=== PATIENT | female | born 1945 | race Caucasian/White ===

== ENCOUNTER → 2020-03-29 11:55 | Outpatient (CLI) | payer MEDICARE, OTHER, SELFPAY ==
--- NOTE | 2020-03-29 | DI.RAD.S_ITS ---
PROCEDURE: XR THORACIC SPINE 3V INDICATIONS: CHRONIC BACK PAIN TECHNIQUE: 3 views of the thoracic spine were acquired. COMPARISON: None. FINDINGS: Bones: No fractures or dislocations but there is mild to moderate degenerative disc disease best seen over the lower half of the thoracic spine. No prior compression fracture found.. No suspicious bony lesions. Twelve pairs of ribs are noted, and appear intact where visualized. Soft tissues: No paravertebral stripe thickening. IMPRESSION: Dily-ah-hrsecmoi degenerative disc disease along the lower half of the LS spine, without evidence of prior trauma or subluxation. No definite spinal or foraminal stenosis is found. Dictated by: Joby William M.D. on 03/29/2020 at 13:55 Approved by: Joby William M.D. on 03/29/2020 at 13:56
--- NOTE | 2020-03-29 | DI.RAD.S_ITS ---
PROCEDURE: XR LUMBAR SPINE MIN 4V INDICATIONS: CHRONIC BACK PAIN TECHNIQUE: For views of the lumbar spine were acquired. COMPARISON: None. FINDINGS: Bones: 5 nonrib-bearing vertebrae are present. There is mildly abnormal bony alignment with slight convex rightward scoliosis centered at the thoracolumbar junction and also grade 1 anterolisthesis of L4 on L5 seen on the lateral view. The degenerative disc disease present is moderate in severity over the middle and lower thirds of the lumbosacral spine and moderately severe facet osteoarthritis is present from L3 through S1 with ligamentous laxity allowing anterolisthesis at L4-L5.. No vertebral body compression fractures. No suspicious bony lesions. Soft tissues: Overlying bowel gas pattern is normal. No suspicious soft tissue calcifications. Oblique images: No pars defects. IMPRESSION: No acute trauma, moderately severe degenerative disc disease and facet osteoarthritis is present over the middle and lower thirds of the LS spine. Spinal and foraminal stenosis likely is present from L3 inferiorly and most pronounced at L5-S1. Ligamentous laxity allows grade 1 anterolisthesis of L4 on L5. Dictated by: Joby William M.D. on 03/29/2020 at 15:10 Approved by: Joby William M.D. on 03/29/2020 at 15:15
== END ==
PROVIDERS: PCP Family Medicine; Referring Provider Family Medicine; Visit Provider Family Medicine
DX: M54.9 Dorsalgia, unspecified (principal); M51.37 Other intervertebral disc degeneration, lumbosacral region; M48.07 Spinal stenosis, lumbosacral region; M43.16 Spondylolisthesis, lumbar region; G89.29 Other chronic pain
CPT/HCPCS: 72072; 72110

== ENCOUNTER → 2020-07-18 11:07 | Outpatient (CLI) | payer MEDICARE, OTHER, SELFPAY | PROVIDERS: PCP Family Medicine; Referring Provider Family Medicine; Visit Provider Family Medicine | DX: M54.16 Radiculopathy, lumbar region (principal); Z53.20 Procedure and treatment not carried out because of patient's decision for unspecified reasons ==

== ENCOUNTER 2022-01-31 21:30 | Inpatient (IN) | payer MEDICARE, OTHER, SELFPAY ==
--- NOTE | 2022-01-31 21:22 | ED.GENADULT ---
HPI - General Adult General Chief complaint: Nausea/Vomiting/Diarrhea Stated complaint: Covid, Nausea, weak, shaky Time Seen by Provider: 01/31/22 21:37 History of Present Illness HPI narrative: 76-year-old woman with a history of hypertension who is immunized against COVID yet tested positive on January 26 with the slight cough appreciated starting January 25. She has not felt particularly sick however over the last 48 hours she has had increasing nausea and vomiting to the point that she is having dry heaves and is so weak that she is having difficulty moving about. She does have a mild headache she is significantly thirsty, she states that she is not significantly short of breath, cough has essentially resolved she is not having diarrhea aside from the pain in her abdomen from retching she isn't having overt abdominal pain. No palpitations and no lower extremity edema Related Data Home Medications Medication Instructions Recorded Confirmed amlodipine 2.5 mg tablet 2.5 mg PO BEDTIME 02/01/22 02/01/22 indapamide 1.25 mg tablet 1.25 mg PO QAM 02/01/22 02/01/22 lisinopril 20 mg tablet 20 tab PO QAM 02/01/22 02/01/22 multivitamin with minerals-folic 1 tab PO QAM 02/01/22 02/01/22 acid 200 mcg chewable tablet netarsudil 0.02 %-latanoprost 1 drp EYE-BOTH BEDTIME 02/01/22 02/01/22 0.005 % eye drops ([place]) Allergies Allergy/AdvReac Type Severity Reaction Status Date / Time hydromorphone [From Dilaudid] Allergy Verified 01/31/22 21:52 iodine Allergy Verified 01/31/22 21:52 Latex, Natural Rubber Allergy Verified 01/31/22 21:52 Sulfa (Sulfonamide Allergy Verified 01/31/22 21:52 Antibiotics) Review of Systems Review of Systems Narrative: Remainder of complete review of systems is otherwise unremarkable except for that included in the HPI. Patient History Medical History Glaucoma Hypertension Surgical History H/O: hysterectomy Previous back surgery Family History (Updated 02/01/22 @ 14:47 by Crow Coleman DO) Mother Hypertension Father Hypertension Social History household members: spouse Smoking Status: Never smoker alcohol intake: never Exam Initial Vital Signs Initial Vital Signs: Vital Signs Temperature 97.8 F 01/31/22 21:46 Pulse Rate 63 01/31/22 21:46 Respiratory Rate 22 01/31/22 21:46 Blood Pressure 169/78 H 01/31/22 21:46 Pulse Oximetry 98 01/31/22 21:46 Oxygen Delivery Method 01/31/22 21:46 General: Frail-appearing, weak but Able to give a complete and coherent history. HEENT: dry mucous membranes, normal sclera with reactive pupils, Neck: No JVD, supple Respiratory: Lungs are clear to auscultation, no wheezing no rales no rhonchi. Full and symmetrical air movement Cardiac: Regular rate and rhythm no murmurs no bruits Abdomen: Soft, nontender, good bowel tones, no flank pain Skin: Warm and dry, no rashes Neurologic: Globally weak but Grossly neurologically intact with no obvious asymmetries or abnormalities Extremities: No trauma, well perfused Psych: Cooperative, appropriate insight and affect Course Orders Ordered: ED Orders 02/01/22 20:15 Sodium Urine Random Urgent 02/02/22 05:00 Complete Blood Count AUTO DIFF DAILY Comprehensive Metabolic Panel DAILY Magnesium DAILY 02/03/22 05:00 Complete Blood Count AUTO DIFF DAILY Comprehensive Metabolic Panel DAILY Magnesium DAILY 02/04/22 05:00 Complete Blood Count AUTO DIFF DAILY Comprehensive Metabolic Panel DAILY Magnesium DAILY Enoxaparin Sodium (Enoxaparin 40 Mg/0.4 Ml Syringe) 40 mg SUBCUT DAILY [facility] Last Admin: 02/01/22 15:21 Dose: 40 mg Documented By: CLL Ondansetron HCl (Ondansetron 4 Mg/2 Ml Inj) 4 mg IV Q8HR PRN PRN Reason: Nausea And Vomiting Discontinued Medications Magnesium Sulfate (Magnesium Sulfate) 2 gm in 50 mls @ 150 mls/hr IV NOW ONE Stop: 02/01/22 01:57 Last Infusion: 02/01/22 02:27 Dose: 0 mls/hr Documented By: MIKEY Co-signed By: ANTHONY Admin: 02/01/22 01:54 Dose: 150 mls/hr Documented By: MIKEY Co-signed By: ANTHONY Sodium Chloride (Normal Saline 0.9%) 1,000 mls @ 60 mls/hr IV CONT ARI Last Infusion: 02/01/22 11:00 Dose: 0 mls/hr Documented By: Admin: 02/01/22 02:07 Dose: 60 mls/hr Documented By: MIKEY POTASSIUM CHLORIDE IN WATER (Potassium Cl 10 Meq/100 Ml [place]) 10 meq in 100 mls @ 100 mls/hr IV Q1H ARI Stop: 02/01/22 07:44 Last Admin: 02/01/22 11:43 Dose: Not Given Documented By: Infusion: 02/01/22 11:43 Dose: 0 mls/hr Documented By: Infusion: 02/01/22 11:29 Dose: 0 mls/hr Documented By: Admin: 02/01/22 10:38 Dose: 100 mls/hr Documented By: Infusion: 02/01/22 09:28 Dose: 0 mls/hr Documented By: Admin: 02/01/22 07:00 Dose: 60 mls/hr Documented By: Infusion: 02/01/22 06:34 Dose: 60 mls/hr Documented By: Admin: 02/01/22 04:53 Dose: 60 mls/hr Documented By: Infusion: 02/01/22 04:48 Dose: 60 mls/hr Documented By: Admin: 02/01/22 03:07 Dose: 60 mls/hr Documented By: Infusion: 02/01/22 02:56 Dose: 100 mls/hr Documented By: Admin: 02/01/22 01:56 Dose: 100 mls/hr Documented By: MIKEY Sodium Chloride (Normal Saline 0.9%) 500 mls @ 500 mls/hr IV BOLUS ONE Stop: 02/01/22 04:09 Last Infusion: 02/01/22 05:19 Dose: 0 mls/hr Documented By: Admin: 02/01/22 03:15 Dose: 500 mls/hr Documented By: MIKEY Metoclopramide HCl (Metoclopramide 10 Mg/2 Ml Inj) 10 mg IV NOW ONE Stop: 02/01/22 01:45 Last Admin: 02/01/22 01:56 Dose: 10 mg Documented By: MIKEY Vital Signs Vital signs: Vital Signs - 8 hr 02/01/22 01:32 02/01/22 01:33 02/01/22 01:33 Pulse Rate 77 Blood Pressure 189/86 H Pulse Oximetry 91 99 02/01/22 02:00 02/01/22 02:01 02/01/22 02:01 Pulse Rate 73 76 Blood Pressure 116/71 Pulse Oximetry 98 99 02/01/22 02:30 02/01/22 02:30 Pulse Rate 71 Blood Pressure 148/70 H Pulse Oximetry 96 Medical Decision Making Lab Data Result diagrams: 02/01/22 04:27 02/01/22 20:15 Labs: Lab Results 01/31/22 01/31/22 01/31/22 Range/Units 21:35 21:35 21:35 WBC 1.6 L* (4.5-11.0) X10^3/uL RBC 4.19 (4.0-5.2) X10^6/uL Hgb 13.1 (12.0-16.0) g/dL Hct 37.8 (36-46) % MCV 90.3 (80-100) fL MCH 31.2 (26-34) PG MCHC 34.5 (30-36) % RDW 14.1 (11.6-14.8) % Plt Count 184 (150-400) X10^3/uL Neut % (Auto) Not Reportable Lymph % (Auto) Not Reportable [place] % (Auto) Not Reportable Eos % (Auto) Not Reportable Baso % (Auto) Not Reportable Lymph # (Auto) Not Reportable [place] # (Auto) Not Reportable Baso # (Auto) Not Reportable Total Counted 100 Seg Neutrophils % 34.0 L (38-70) % Band Neutrophils % (3-7) % Lymphocytes % (Manual) 45.0 (25-45) % Atypical Lymphs % 1.0 H ( - 0) % Monocytes % (Manual) 20.0 H (2-11) % Basophils % (Manual) (0-1) % Neutrophils # (Manual) 544 L (6546-7619) /uL RBC Morphology Norm Sodium (137-145) mmol/L Potassium (3.4-5.1) mmol/L Chloride (98-107) mmol/L Carbon Dioxide (22-32) mmol/L BUN (7-17) mg/dL Creatinine (0.52-1.04) mg/dL Estimated GFR (>60) mL/min BUN/Creatinine Ratio (6-22) Glucose (80-110) mg/dL Calcium (8.4-10.2) mg/dL Magnesium (1.6-2.3) mg/dL Total Bilirubin (0.2-1.3) mg/dL AST (14-36) IU/L ALT (<35) IU/L Alkaline Phosphatase (38-126) U/L Troponin I < 0.012 (0.01-0.034) ng/mL NT-Pro-B Natriuret Pep 115 (<450) pg/mL Total Protein (6.3-8.2) g/dL Albumin (3.5-5.0) g/dL Globulin (1.7-4.1) g/dL Albumin/Globulin Ratio (1.0-2.8) SARS-CoV-2 (PCR) (Negative) 01/31/22 01/31/22 02/01/22 Range/Units 21:35 22:02 04:27 WBC 2.0 L (4.5-11.0) X10^3/uL RBC 4.31 (4.0-5.2) X10^6/uL Hgb 13.4 (12.0-16.0) g/dL Hct 39.1 (36-46) % MCV 90.9 (80-100) fL MCH 31.2 (26-34) PG MCHC 34.4 (30-36) % RDW 13.8 (11.6-14.8) % Plt Count 229 (150-400) X10^3/uL Neut % (Auto) Not Reportable Lymph % (Auto) Not Reportable [place] % (Auto) Not Reportable Eos % (Auto) Not Reportable Baso % (Auto) Not Reportable Lymph # (Auto) Not Reportable [place] # (Auto) Not Reportable Baso # (Auto) Not Reportable Total Counted 100 Seg Neutrophils % 41.0 (38-70) % Band Neutrophils % 5.0 (3-7) % Lymphocytes % (Manual) 31.0 (25-45) % Atypical Lymphs % ( - 0) % Monocytes % (Manual) 22.0 H (2-11) % Basophils % (Manual) 1.0 (0-1) % Neutrophils # (Manual) 920 L (7680-6362) /uL RBC Morphology Normal morphology Sodium 116 L* (137-145) mmol/L Potassium 2.6 L* (3.4-5.1) mmol/L Chloride 80 L (98-107) mmol/L Carbon Dioxide 28 (22-32) mmol/L BUN 10 (7-17) mg/dL Creatinine 0.43 L (0.52-1.04) mg/dL Estimated GFR > 60 (>60) mL/min BUN/Creatinine Ratio 23.3 H (6-22) Glucose 133 H (80-110) mg/dL Calcium 8.0 L (8.4-10.2) mg/dL Magnesium 1.5 L (1.6-2.3) mg/dL Total Bilirubin 0.4 (0.2-1.3) mg/dL AST 40 H (14-36) IU/L ALT 22 (<35) IU/L Alkaline Phosphatase 43 (38-126) U/L Troponin I (0.01-0.034) ng/mL NT-Pro-B Natriuret Pep (<450) pg/mL Total Protein 7.0 (6.3-8.2) g/dL Albumin 4.0 (3.5-5.0) g/dL Globulin 3.0 (1.7-4.1) g/dL Albumin/Globulin Ratio 1.3 (1.0-2.8) SARS-CoV-2 (PCR) Positive H (Negative) 02/01/22 02/01/22 Range/Units 06:03 06:03 WBC (4.5-11.0) X10^3/uL RBC (4.0-5.2) X10^6/uL Hgb (12.0-16.0) g/dL Hct (36-46) % MCV (80-100) fL MCH (26-34) PG MCHC (30-36) % RDW (11.6-14.8) % Plt Count (150-400) X10^3/uL Neut % (Auto) Lymph % (Auto) [place] % (Auto) Eos % (Auto) Baso % (Auto) Lymph # (Auto) [place] # (Auto) Baso # (Auto) Total Counted Seg Neutrophils % (38-70) % Band Neutrophils % (3-7) % Lymphocytes % (Manual) (25-45) % Atypical Lymphs % ( - 0) % Monocytes % (Manual) (2-11) % Basophils % (Manual) (0-1) % Neutrophils # (Manual) (0737-1196) /uL RBC Morphology Sodium 120 L (137-145) mmol/L Potassium 3.4 (3.4-5.1) mmol/L Chloride 86 L (98-107) mmol/L Carbon Dioxide 29 (22-32) mmol/L BUN 8 (7-17) mg/dL Creatinine 0.52 (0.52-1.04) mg/dL Estimated GFR > 60 (>60) mL/min BUN/Creatinine Ratio 15.4 (6-22) Glucose 105 (80-110) mg/dL Calcium 8.1 L (8.4-10.2) mg/dL Magnesium 2.1 (1.6-2.3) mg/dL Total Bilirubin 0.3 (0.2-1.3) mg/dL AST 42 H (14-36) IU/L ALT 22 (<35) IU/L Alkaline Phosphatase 44 (38-126) U/L Troponin I (0.01-0.034) ng/mL NT-Pro-B Natriuret Pep 479 H (<450) pg/mL Total Protein 6.7 (6.3-8.2) g/dL Albumin 4.0 (3.5-5.0) g/dL Globulin 2.7 (1.7-4.1) g/dL Albumin/Globulin Ratio 1.5 (1.0-2.8) SARS-CoV-2 (PCR) (Negative) ECG Data Interpretation: Sinus rhythm at a rate of 66 1st degree block Normal intervals, normal axis No ischemic changes MDM Narrative Medical decision making narrative: 76-year-old woman with history of hypertension for which she takes indapamide, lisinopril 20 mg, and amlodipine 2.5 mg, with concurrent COVID infection in a fully vaccinated patient. Minimal respiratory symptoms and no hypoxia however she has had dramatic vomiting over the last 48 hours to the point that she is hyponatremic, hypomagnesemic, and hypokalemic with significant associated weakness. Will replace all of the above and plan for hospital admission the. I believe stopping the indapamide is also indicated at this time. 6am patient has done well. Her repeat blood work indicates white count is slightly up, she is stopped vomiting, she has received magnesium potassium total of 500 cc of saline and continued 60cc/hr. She has gotten up to void spontaneously a couple of times and her stability seems to be improving slightly. Care is reviewed with Heather Trevino, evening hospitalist. She will hand this case over to the day hospitalist for admission. Awaiting chemistries to see what sodium level as to determine floor care verses ICU requirement with initial admission. Discharge Plan Departure Patient Disposition: Admitted As Inpatient Clinical Impression: COVID, Nausea & vomiting, Acute hyponatremia, Hypokalemia, Hypomagnesemia Admit Date/Time: 02/01/22 07:33 Admit Provider: Crow Coleman
[2022-01-31 21:46] VITALS: BP 169/78; PULSE 63; RESP 22; TEMP 36.6; O2SAT 98; BMI 19.5
[2022-01-31 22:05] LABS: Hematocrit 37.8 % (36-46); Hemoglobin 13.1 g/dL (12.0-16.0); Mean Corpuscular HGB Conc 34.5 % (30-36); Mean Corpuscular Hemoglobin 31.2 PG (26-34); Mean Corpuscular Volume 90.3 fL (80-100); Platelet Count 184 X10^3/uL (150-400); Red Blood Cell Count 4.19 X10^6/uL (4.0-5.2); Red Cell Distribution Width 14.1 % (11.6-14.8)
[2022-01-31 22:10] LABS: White Blood Cell Count 1.6 X10^3/uL (4.5-11.0)
[2022-01-31 22:11] LABS: Add Manual Diff / Slide Review YES
[2022-01-31 22:12] LABS: Alanine Aminotransferase 22 IU/L (<35); Albumin Globulin Ratio 1.3 (1.0-2.8); Alkaline Phosphatase 43 U/L (38-126); Aspartate Aminotransferase 40 IU/L (14-36); BUN Creatinine Ratio 23.3 (6-22); Bilirubin Total 0.4 mg/dL (0.2-1.3); Blood Urea Nitrogen 10 mg/dL (7-17); Carbon Dioxide 28 mmol/L (22-32); Estimated Glomerular Filt Rate > 60 mL/min (>60); Glucose 133 mg/dL (80-110); HEMOLYSIS < 15 (0-50); Magnesium 1.5 mg/dL (1.6-2.3)
[2022-01-31 22:20] LABS: NT-proBNP (BNP-Adult 18+) 115 pg/mL (<450)
[2022-01-31 22:21] LABS: Neutrophils Absolute Manual 544 /uL (3000-5900); Total Cells Counted 100
[2022-01-31 22:23] LABS: RBC Morphology Norm; Troponin I < 0.012 ng/mL (0.01-0.034)
[2022-01-31 22:27] LABS: Chloride 80 mmol/L (98-107)
[2022-01-31 22:28] LABS: Potassium 2.6 mmol/L (3.4-5.1); Sodium 116 mmol/L (137-145)
[2022-01-31 23:17] LABS: COVID19 - ADMIT (NP swab/PCR) POSITIVE (Negative)
[2022-02-01] VITALS (28 sets, daily range): BP systolic 116–189; BP diastolic 67–86; PULSE 63–77; RESP 14–16; TEMP 36.1–36.7; O2SAT 91–99; BMI 18.3
--- NOTE | 2022-02-01 01:38 | DI.RAD.S_ITS ---
PROCEDURE: XR CHEST 1V INDICATIONS: covid TECHNIQUE: One view of the chest was acquired. COMPARISON: None. FINDINGS: Surgical changes and devices: None. Lungs and pleura: No acute consolidation. There is a small nodular opacity projecting over the right posterolateral 8th rib. No pleural effusions or pneumothorax. Mediastinum: Mediastinal contours appear normal. Heart size is normal. Bones and chest wall: No suspicious bony lesions. Overlying soft tissues appear unremarkable. IMPRESSION: 1. No acute consolidation. 2. Small nodular opacity projecting over the right posterolateral 8th rib. The findings may represent confluence of vascular and bony structures versus a pulmonary nodule. A follow-up PA and lateral study may be performed for further evaluation if clinically indicated. Dictated by: Richard Jiang M.D. on 02/01/2022 at 2:09 Approved by: Richard Jiang M.D. on 02/01/2022 at 2:11
[2022-02-01] MEDS: MAGNESIUM SULFATE 2 GM/50 ML PIGGYBACK IV (01:54)
[2022-02-01] MEDS: METOCLOPRAMIDE 10 MG/2 ML INJ IV (01:56)
[2022-02-01] MEDS: POTASSIUM CHLORIDE IN WATER 10 MEQ/100 ML PIGGYBACK 100 MEQ IV ×2 (01:56→10:38)
[2022-02-01] MEDS: SODIUM CHLORIDE 0.9% 1,000 ML 60 ML IV (02:07)
[2022-02-01] MEDS: POTASSIUM CHLORIDE IN WATER 10 MEQ/100 ML PIGGYBACK 60 MEQ IV ×3 (03:07→07:00)
[2022-02-01] MEDS: SODIUM CHLORIDE 0.9% 500 ML IV (03:15)
[2022-02-01 05:10] LABS: Hematocrit 39.1 % (36-46); Hemoglobin 13.4 g/dL (12.0-16.0); Mean Corpuscular HGB Conc 34.4 % (30-36); Mean Corpuscular Hemoglobin 31.2 PG (26-34); Mean Corpuscular Volume 90.9 fL (80-100); Platelet Count 229 X10^3/uL (150-400); Red Blood Cell Count 4.31 X10^6/uL (4.0-5.2); Red Cell Distribution Width 13.8 % (11.6-14.8)
[2022-02-01 05:15] LABS: Add Manual Diff / Slide Review YES
[2022-02-01 06:25] LABS: Alanine Aminotransferase 22 IU/L (<35); Albumin Globulin Ratio 1.5 (1.0-2.8); Alkaline Phosphatase 44 U/L (38-126); Aspartate Aminotransferase 42 IU/L (14-36); BUN Creatinine Ratio 15.4 (6-22); Bilirubin Total 0.3 mg/dL (0.2-1.3); Blood Urea Nitrogen 8 mg/dL (7-17); Calcium 8.1 mg/dL (8.4-10.2); Carbon Dioxide 29 mmol/L (22-32); Chloride 86 mmol/L (98-107); Estimated Glomerular Filt Rate > 60 mL/min (>60); Globulin 2.7 g/dL (1.7-4.1); Glucose 105 mg/dL (80-110); HEMOLYSIS < 15 (0-50); Magnesium 2.1 mg/dL (1.6-2.3); Potassium 3.4 mmol/L (3.4-5.1); Sodium 120 mmol/L (137-145); Total Protein 6.7 g/dL (6.3-8.2)
[2022-02-01 06:26] LABS: Neutrophils Absolute Manual 920 /uL (3000-5900); RBC Morphology Normal Morphology; Total Cells Counted 100
[2022-02-01 06:34] LABS: NT-proBNP (BNP-Adult 18+) 479 pg/mL (<450)
[2022-02-01 11:01] LABS: BUN Creatinine Ratio 14.8 (6-22); Blood Urea Nitrogen 8 mg/dL (7-17); Calcium 8.2 mg/dL (8.4-10.2); Carbon Dioxide 32 mmol/L (22-32); Chloride 89 mmol/L (98-107); Estimated Glomerular Filt Rate > 60 mL/min (>60); Glucose 116 mg/dL (80-110); HEMOLYSIS 26 (0-50); Potassium 3.5 mmol/L (3.4-5.1); Sodium 124 mmol/L (137-145)
--- NOTE | 2022-02-01 11:43 | PC.NURSE ---
Home medication list updated. Pt c/o extreme pain in arm w/ potassium infusing after normal saline was discontinued. Spoke w/ Dr. Coleman, he ordered to discontinue IV potassium and that he would address oral potassium once pt is upstairs.
--- NOTE | 2022-02-01 14:39 | PC.NURSE ---
Assess- Patient is alert and oriented x4, she denies pain. She is positive for covid but is asymptomatic. She is not on oxygen or coughing. Will go in now and assess patient, she states that she uses scarlet pads for leakage of urine.
--- NOTE | 2022-02-01 14:46 | PM.HP.1 ---
History of Present Illness History of Present Illness Date Patient Seen: 02/01/22 Time Patient Seen: 13:30 Chief complaint: Covid, Nausea, weak, shaky Narrative: This is a 76-year-old female with a past medical history of hypertension who presented to the emergency room with worsening nausea and weakness over the past couple of days. Patient started developing generalized malaise approximately 5 days ago, on the 1st day she tested negative for COVID but the following day she still felt worse and a repeat test was positive at home. Her nausea continued to worsen over the coming days and she has not been able to eat or drink much at home. She has had decreased urine output, but no dysuria, or urinary frequency. She denies any abdominal pain, chest pain, shortness of breath. She does endorse a mild cough but though that has markedly improved. She denies any diarrhea, or vomiting despite her nausea. She further denies any slurred speech, facial droop, numbness, or tingling. In the emergency room, the patient was hypertensive but the remainder of her vital signs were unremarkable. Laboratory evaluation revealed a mild leukopenia with neutropenia, and a marked hyponatremia with initial sodium of 116. She was given IV fluids for presumed dehydration with improvement in her sodium to 120. She was admitted for further management for hypovolemic hyponatremia. Patient History Medical History Glaucoma Hypertension Surgical History H/O: hysterectomy Previous back surgery Family & Social History Family History (Updated 02/01/22 @ 14:47 by Crow Coleman DO) Mother Hypertension Father Hypertension Social History: household members spouse Prior Living Arrangements House Safety & Behavioral: Feels Safe in Current Yes Environment Been Physically Hurt or No Threatened By a Person Tobacco & Substance use: Smoking Status Never smoker alcohol intake 1 glass of wine most days Substance Use Type does not use Meds Home Medications and Allergies Home Medications Medication Instructions Recorded Confirmed Type amlodipine 2.5 mg tablet 2.5 mg PO BEDTIME 02/01/22 02/01/22 History indapamide 1.25 mg tablet 1.25 mg PO QAM 02/01/22 02/01/22 History lisinopril 20 mg tablet 20 tab PO QAM 02/01/22 02/01/22 History multivitamin with minerals-folic 1 tab PO QAM 02/01/22 02/01/22 History acid 200 mcg chewable tablet netarsudil 0.02 %-latanoprost 1 drp EYE-BOTH BEDTIME 02/01/22 02/01/22 History 0.005 % eye drops (Rocklatan) Allergies Allergy/AdvReac Type Severity Reaction Status Date / Time hydromorphone [From Dilaudid] Allergy Verified 01/31/22 21:52 iodine Allergy Verified 01/31/22 21:52 Latex, Natural Rubber Allergy Verified 01/31/22 21:52 Sulfa (Sulfonamide Allergy Verified 01/31/22 21:52 Antibiotics) Review of Systems Review of Systems Narrative: All other systems reviewed with the patient and are negative unless otherwise stated. Exam Vital Signs (past 8 hours): - 02/01/22 07:01 02/01/22 07:35 02/01/22 07:38 Temperature Pulse Rate 73 Respiratory Rate Blood Pressure 160/70 H Pulse Oximetry 92 99 Oxygen Delivery Method Oxygen Flow Rate 02/01/22 07:38 02/01/22 07:46 02/01/22 07:46 Temperature Pulse Rate 74 Respiratory Rate Blood Pressure 162/74 H 145/75 H Pulse Oximetry 97 Oxygen Delivery Method Oxygen Flow Rate 02/01/22 08:12 02/01/22 08:00 02/01/22 08:00 Temperature 98.1 F Pulse Rate 69 Respiratory Rate Blood Pressure 145/77 H Pulse Oximetry 97 Oxygen Delivery Method Oxygen Flow Rate 02/01/22 08:30 02/01/22 08:36 02/01/22 08:36 Temperature Pulse Rate 75 76 Respiratory Rate Blood Pressure 158/77 H Pulse Oximetry 99 99 Oxygen Delivery Method Oxygen Flow Rate 02/01/22 09:00 02/01/22 09:00 02/01/22 11:13 Temperature Pulse Rate 70 Respiratory Rate Blood Pressure 155/76 H 141/71 H Pulse Oximetry 98 Oxygen Delivery Method Oxygen Flow Rate 02/01/22 11:13 02/01/22 11:28 02/01/22 11:28 Temperature Pulse Rate 75 77 Respiratory Rate 16 Blood Pressure 131/68 Pulse Oximetry 98 98 Oxygen Delivery Method Room Air Oxygen Flow Rate 02/01/22 13:00 02/01/22 14:36 Temperature 97 F L Pulse Rate 72 Respiratory Rate 14 Blood Pressure 143/73 H Pulse Oximetry 99 Oxygen Delivery Method Room Air Oxygen Flow Rate 0 Oxygen Delivery Method Room Air Oxygen Flow Rate 0 Narrative Exam Narrative: General:? Patient is well developed and well nourished, in no distress at this time. HEENT:? Normocephalic, atraumatic, extraocular muscles intact, oral pharynx is clear and mucous membranes are moist. Neck: supple and symmetric, trachea is midline, no cervical adenopathy. Negative for JVD Chest:? Normal AP diameter and contour without kyphoscoliosis, no tachypnea, equal chest rise bilaterally. Lungs:? CTA b/l no wheezing rhonchi or rales. Cardio:?RRR no m/r/g. Abdomen: S NT ND. No CVA tenderness. Musculoskeletal:? Muscle strength and tone are equal within normal limits, no deformity. Extremities: No edema or joint effusions. No cyanosis or clubbing. Skin:? Pale,? Warm to touch,dry and intact without rashes, ulcerations or petechiae.? Neuro:? Alert and orientated x3,? sensation to touch intact in all extremities, no gross deficits noted of cranial nerves. Psych:? Patient has a well-kept appearance, appropriate affect, mental status attitude thought context and judgment are appropriate for age. Objective ECG Impression: NSR with 1st degree AV block as interpret Labs Result Diagrams: 02/01/22 04:27 02/01/22 10:35 Labs: Laboratory Results - last 24 hr 01/31/22 01/31/22 01/31/22 21:35 21:35 21:35 WBC 1.6 L* RBC 4.19 Hgb 13.1 Hct 37.8 MCV 90.3 MCH 31.2 MCHC 34.5 RDW 14.1 Plt Count 184 Neut % (Auto) Not Reportable Lymph % (Auto) Not Reportable [place] % (Auto) Not Reportable Eos % (Auto) Not Reportable Baso % (Auto) Not Reportable Lymph # (Auto) Not Reportable [place] # (Auto) Not Reportable Baso # (Auto) Not Reportable Total Counted 100 Seg Neutrophils % 34.0 L Band Neutrophils % Lymphocytes % (Manual) 45.0 Atypical Lymphs % 1.0 H Monocytes % (Manual) 20.0 H Basophils % (Manual) Neutrophils # (Manual) 544 L RBC Morphology Norm Sodium Potassium Chloride Carbon Dioxide BUN Creatinine Estimated GFR BUN/Creatinine Ratio Glucose Calcium Magnesium Total Bilirubin AST ALT Alkaline Phosphatase Troponin I < 0.012 NT-Pro-B Natriuret Pep 115 Total Protein Albumin Globulin Albumin/Globulin Ratio SARS-CoV-2 (PCR) 01/31/22 01/31/22 02/01/22 21:35 22:02 04:27 WBC 2.0 L RBC 4.31 Hgb 13.4 Hct 39.1 MCV 90.9 MCH 31.2 MCHC 34.4 RDW 13.8 Plt Count 229 Neut % (Auto) Not Reportable Lymph % (Auto) Not Reportable [place] % (Auto) Not Reportable Eos % (Auto) Not Reportable Baso % (Auto) Not Reportable Lymph # (Auto) Not Reportable [place] # (Auto) Not Reportable Baso # (Auto) Not Reportable Total Counted 100 Seg Neutrophils % 41.0 Band Neutrophils % 5.0 Lymphocytes % (Manual) 31.0 Atypical Lymphs % Monocytes % (Manual) 22.0 H Basophils % (Manual) 1.0 Neutrophils # (Manual) 920 L RBC Morphology Normal morphology Sodium 116 L* Potassium 2.6 L* Chloride 80 L Carbon Dioxide 28 BUN 10 Creatinine 0.43 L Estimated GFR > 60 BUN/Creatinine Ratio 23.3 H Glucose 133 H Calcium 8.0 L Magnesium 1.5 L Total Bilirubin 0.4 AST 40 H ALT 22 Alkaline Phosphatase 43 Troponin I NT-Pro-B Natriuret Pep Total Protein 7.0 Albumin 4.0 Globulin 3.0 Albumin/Globulin Ratio 1.3 SARS-CoV-2 (PCR) Positive H 02/01/22 02/01/22 02/01/22 06:03 06:03 10:35 WBC RBC Hgb Hct MCV MCH MCHC RDW Plt Count Neut % (Auto) Lymph % (Auto) [place] % (Auto) Eos % (Auto) Baso % (Auto) Lymph # (Auto) [place] # (Auto) Baso # (Auto) Total Counted Seg Neutrophils % Band Neutrophils % Lymphocytes % (Manual) Atypical Lymphs % Monocytes % (Manual) Basophils % (Manual) Neutrophils # (Manual) RBC Morphology Sodium 120 L 124 L Potassium 3.4 3.5 Chloride 86 L 89 L Carbon Dioxide 29 32 BUN 8 8 Creatinine 0.52 0.54 Estimated GFR > 60 > 60 BUN/Creatinine Ratio 15.4 14.8 Glucose 105 116 H Calcium 8.1 L 8.2 L Magnesium 2.1 Total Bilirubin 0.3 AST 42 H ALT 22 Alkaline Phosphatase 44 Troponin I NT-Pro-B Natriuret Pep 479 H Total Protein 6.7 Albumin 4.0 Globulin 2.7 Albumin/Globulin Ratio 1.5 SARS-CoV-2 (PCR) Assessment & Plan Assessment & Plan narrative: 1. Hyponatremia, presumed acute - rapidly corrected from 116 to 124 with IVF. IVF now off, continue to follow, already at goal Na for today. Consider D5W if continuing to rise. - suspect hypovolemic hyponatremia. Urine sodium is pending. - continue to follow q4 BMP. 2. Essential hypertension - continue home lisinopril and amlodipine. 3. COVID-19 infection - outside of window for paxlovid therapy and this is not available currently at [facility]. - Continue symptomatic treatments as needed. Code: Full as discussed with the patient, surrogate decision maker is her spouse DVT: Lovenox daily Dispo: Patient is admitted under inpatient status as her stay is expected to exceed 2 midnights I have utilized all available immediate resources to obtain, update, or review the patient's current medications. Time Spent With Patient Critical Care time: I spent a total of [] minutes of critical care time on this patient's care today; this time is exclusive of procedural time. Quality VTE Deep Vein Thrombosis/Pulmonary Embolism Present on Admission: No MIPS - Admit I confirm the patient?s Advance Care Plan is present, Code status is documented, Surrogate decision maker is in patient?s record [If Yes, STOP here]: Yes
[2022-02-01] MEDS: ENOXAPARIN 40 MG/0.4 ML SYRINGE SUBCUT (15:21)
[2022-02-01 20:55] LABS: BUN Creatinine Ratio 23.4 (6-22); Blood Urea Nitrogen 18 mg/dL (7-17); Calcium 8.2 mg/dL (8.4-10.2); Carbon Dioxide 30 mmol/L (22-32); Chloride 90 mmol/L (98-107); Estimated Glomerular Filt Rate > 60 mL/min (>60); Glucose 112 mg/dL (80-110); HEMOLYSIS < 15 (0-50); Potassium 3.4 mmol/L (3.4-5.1); Sodium 126 mmol/L (137-145)
[2022-02-01 21:30] LABS: Sodium Urine Random 8 mmol/L (30-90)
[2022-02-02 05:00] VITALS: BP 160/71; PULSE 65; RESP 16; TEMP 36.7; O2SAT 100
[2022-02-02 06:00] VITALS: O2SAT 100
[2022-02-02 06:51] LABS: Add Manual Diff / Slide Review NO; Basophils Absolute Auto 0 /uL (0-100); Basophils Percent Auto 0.6 % (0-2); Eosinophils Absolute Auto 0 /uL (0-450); Eosinophils Percent Auto 0.5 % (2-4); Hematocrit 39.4 % (36-46); Hemoglobin 13.6 g/dL (12.0-16.0); Lymphocytes Absolute Auto 1000 /uL (1100-4500); Mean Corpuscular HGB Conc 34.5 % (30-36); Mean Corpuscular Hemoglobin 31.3 PG (26-34); Mean Corpuscular Volume 90.6 fL (80-100); Monocytes Absolute Auto 400 /uL (0-900); Monocytes Percent Auto 20.3 % (3-14); Neutrophils Absolute Auto 800 /uL (1500-7000); Neutrophils Percent Auto 34.6 % (50-75); Platelet Count 193 X10^3/uL (150-400); Red Blood Cell Count 4.35 X10^6/uL (4.0-5.2); Red Cell Distribution Width 14.2 % (11.6-14.8); White Blood Cell Count 2.2 X10^3/uL (4.5-11.0)
[2022-02-02 07:03] LABS: Alanine Aminotransferase 26 IU/L (<35); Albumin 4.2 g/dL (3.5-5.0); Albumin Globulin Ratio 1.4 (1.0-2.8); Alkaline Phosphatase 41 U/L (38-126); Aspartate Aminotransferase 43 IU/L (14-36); BUN Creatinine Ratio 25.9 (6-22); Bilirubin Total 0.5 mg/dL (0.2-1.3); Blood Urea Nitrogen 15 mg/dL (7-17); Calcium 8.2 mg/dL (8.4-10.2); Carbon Dioxide 33 mmol/L (22-32); Chloride 90 mmol/L (98-107); Estimated Glomerular Filt Rate > 60 mL/min (>60); Glucose 97 mg/dL (80-110); HEMOLYSIS < 15 (0-50); Magnesium 2.1 mg/dL (1.6-2.3); Potassium 3.2 mmol/L (3.4-5.1); Sodium 128 mmol/L (137-145); Total Protein 7.2 g/dL (6.3-8.2)
--- NOTE | 2022-02-02 08:46 | PC.NURSE ---
Assess- Patients lung sounds are clear this morning, patient states that once in a while her stomach is queasy, she does not have any sob, coughing or difficulty breathing. Patient is eating breakfast and tolerating this well. She may be discharged home today.
[2022-02-02 09:00] VITALS: BP 135/81; PULSE 83; RESP 14; TEMP 36.3; O2SAT 97
--- NOTE | 2022-02-02 10:14 | PM.DS.1 ---
History of Present Illness History of Present Illness Date Patient Seen: 02/02/22 Chief complaint: Covid, Nausea, weak, shaky Narrative: This is a 76-year-old female with a past medical history of hypertension who presented to the emergency room with worsening nausea and weakness over the past couple of days. Patient started developing generalized malaise approximately 5 days ago, on the 1st day she tested negative for COVID but the following day she still felt worse and a repeat test was positive at home. Her nausea continued to worsen over the coming days and she has not been able to eat or drink much at home. She has had decreased urine output, but no dysuria, or urinary frequency. She denies any abdominal pain, chest pain, shortness of breath. She does endorse a mild cough but though that has markedly improved. She denies any diarrhea, or vomiting despite her nausea. She further denies any slurred speech, facial droop, numbness, or tingling. In the emergency room, the patient was hypertensive but the remainder of her vital signs were unremarkable. Laboratory evaluation revealed a mild leukopenia with neutropenia, and a marked hyponatremia with initial sodium of 116. She was given IV fluids for presumed dehydration with improvement in her sodium to 120. She was admitted for further management for hypovolemic hyponatremia. Discharge Providers Provider Date of admission: 02/01/22 07:33 Discharge Date: 02/02/22 Primary care physician: Jax Cardoso DO Discharge provider: Crow Coleman DO Summary Hospital Course Discharge Diagnosis: 1. Hyponatremia, presumed acute 2. Essential hypertension 3. COVID-19 infection 4. Hypokalemia and hypomagnesemia. Hospital Course: This is the 68-year-old female with a past medical history of hypertension who was admitted for hyponatremia. Her hyponatremia was due to decreased oral intake in the setting of nausea with her COVID-19 infection. In the emergency room, her initial sodium level was 116. She also had marked hypokalemia and hypo magnesemia from decreased oral intake. These were repleted. Her sodium level improved rapidly with IV fluids, and shortly after arrival to the hospital for her sodium was 124. IV fluids were discontinued at that time to prevent over-correction, and no further fluids were required. Her sodium continued to improve on its own. She improved much more quickly than expected. The patient was asymptomatic at the time of discharge, and was able to tolerate adequate oral intake for discharge home. I recommended that she continue aggressive oral intake at home and schedule a follow-up with her PCP for an outpatient recheck of her sodium level in the coming weeks. She was provided return precautions including worsening nausea, inability to tolerate oral intake, or vomiting. Time Spent with Patient Time spent: Greater than 30 minutes Exam Vital Signs (past 8 hours): - 02/02/22 05:00 02/02/22 06:00 02/02/22 09:00 Temperature 98.0 F 97.3 F L Pulse Rate 65 83 Respiratory Rate 16 14 Blood Pressure 160/71 H 135/81 Pulse Oximetry 100 100 97 Oxygen Delivery Method Room Air Oxygen Flow Rate 0 0 0 Oxygen Delivery Method Room Air Oxygen Flow Rate 0 Narrative Exam Narrative: General:? Patient is well developed and well nourished, in no distress at this time. HEENT:? Normocephalic, atraumatic, extraocular muscles intact, oral pharynx is clear and mucous membranes are moist. Neck: supple and symmetric, trachea is midline, no cervical adenopathy. Negative for JVD Chest:? Normal AP diameter and contour without kyphoscoliosis, no tachypnea, equal chest rise bilaterally. Lungs:? CTA b/l no wheezing rhonchi or rales. Cardio:?RRR no m/r/g. Abdomen: S NT ND. No CVA tenderness. Musculoskeletal:? Muscle strength and tone are equal within normal limits, no deformity. Extremities: No edema or joint effusions. No cyanosis or clubbing. Skin:? Pale,? Warm to touch,dry and intact without rashes, ulcerations or petechiae.? Neuro:? Alert and orientated x3,? sensation to touch intact in all extremities, no gross deficits noted of cranial nerves. Psych:? Patient has a well-kept appearance, appropriate affect, mental status attitude thought context and judgment are appropriate for age. Objective Labs Result Diagrams: 02/02/22 06:25 02/02/22 06:25 Labs: Laboratory Results - last 24 hr 02/01/22 02/01/22 02/01/22 10:35 20:15 20:15 WBC RBC Hgb Hct MCV MCH MCHC RDW Plt Count Neut % (Auto) Lymph % (Auto) [place] % (Auto) Eos % (Auto) Baso % (Auto) Neut # (Auto) Lymph # (Auto) [place] # (Auto) Eos # (Auto) Baso # (Auto) Sodium 124 L 126 L Potassium 3.5 3.4 Chloride 89 L 90 L Carbon Dioxide 32 30 BUN 8 18 H Creatinine 0.54 0.77 Estimated GFR > 60 > 60 BUN/Creatinine Ratio 14.8 23.4 H Glucose 116 H 112 H Calcium 8.2 L 8.2 L Magnesium Total Bilirubin AST ALT Alkaline Phosphatase Total Protein Albumin Globulin Albumin/Globulin Ratio Ur Random Sodium 8 L 02/02/22 02/02/22 06:25 06:25 WBC 2.2 L RBC 4.35 Hgb 13.6 Hct 39.4 MCV 90.6 MCH 31.3 MCHC 34.5 RDW 14.2 Plt Count 193 Neut % (Auto) 34.6 L Lymph % (Auto) 44.0 H [place] % (Auto) 20.3 H Eos % (Auto) 0.5 L Baso % (Auto) 0.6 Neut # (Auto) 800 L Lymph # (Auto) 1000 L [place] # (Auto) 400 Eos # (Auto) 0 Baso # (Auto) 0 Sodium 128 L Potassium 3.2 L Chloride 90 L Carbon Dioxide 33 H BUN 15 Creatinine 0.58 Estimated GFR > 60 BUN/Creatinine Ratio 25.9 H Glucose 97 Calcium 8.2 L Magnesium 2.1 Total Bilirubin 0.5 AST 43 H ALT 26 Alkaline Phosphatase 41 Total Protein 7.2 Albumin 4.2 Globulin 3.0 Albumin/Globulin Ratio 1.4 Ur Random Sodium PFSH Medical History Glaucoma Hypertension Surgical History H/O: hysterectomy Previous back surgery Family History (Updated 02/01/22 @ 14:47 by Crow Coleman DO) Mother Hypertension Father Hypertension Social History household members: spouse Smoking Status: Never smoker alcohol intake: never Discharge Plan Discharge Plan Patient Disposition: Home Provider Discharge Comment: You were admitted to the hospital with a low sodium level. This was due to dehydration caused by your COVID infection. Continue ondansetron (zofran) at home for nausea as needed. Try and add electrolyte enhance liquids to your diet, such as Gatorade well you are ill. Try and stay well-hydrated. I would also recommend a somewhat high caloric intake with sweet foods if you can tolerate them while you continue to feel ill. Please try to remain Isolated at home until you feel improved, you can wear high quality masks at home as well to try and reduce transmission (N95 mask). Discharge orders & Medications Prescriptions: New ondansetron 4 mg tablet,disintegrating 4 mg PO Q8H PRN (Reason: nausea and vomiting) 30 Days Qty: 30 0RF Continued lisinopril 20 mg tablet 20 tab PO QAM amlodipine 2.5 mg tablet 2.5 mg PO BEDTIME indapamide 1.25 mg tablet 1.25 mg PO QAM Rocklat[place] 0.02-0.005 % drops 1 drp EYE-BOTH BEDTIME multivit with min-folic acid 200 mcg Tablet,Chewable 1 tab PO QAM Follow up/Referrals: Jax Cardoso DO [Primary Care Provider] - Diet/Activity/Treatments Diet: Diet as Tolerated Activity: As tolerated Visit Report/Discharge Packet Instructions: DI for Nausea -- Adult, COVID-19: Protecting Yourself When You're at High Risk Discharge Data Primary Care Provider: Jax Cardoso VTE Deep Vein Thrombosis/Pulmonary Embolism Present on Admission: No
--- NOTE | 2022-02-02 10:37 | CM.DANOTE ---
DCP Assessment: Payor: Medicare PCP: MD Janae Pt is a 76 y.o. F who presented to the ED with COVID related symptoms. Pt was hypertensive but other VS were stable. Labs were taken and showed mild leuokpenia and neutropenia with her sodium level of 116. Pt improved after IV fluids were given and sodium level increased to 120. Pt was admitted for further management of hypovolemia and hyponatremia. DCP did not meet with pt due to the fact she is COVID +. Unable to reach pt . Per MD, pt is medically stable for discharge today. Per RN, pt lung sounds are clear this AM and she is eating breakfast and tolerating. Pt discharging home today via personal POV. sending pt home with Jamila. No needs identified at this time. P: Pt to discharge home via personal POV. Kimmy Daily RN/TANNER Discharge Planning/Care Management CM Discharge Assessment Start: 02/02/22 10:36 Freq: Status: Active Protocol: Document 02/02/22 10:36 AMILCAR (Rec: 02/02/22 10:37 [email or web address] [id number]) Discharge Planning Assessment Assigned Truck Driver Kimmy Daily RN/TANNER Advance Directives? No History Provided By Medical Record Prior Living Arrangements House Household Members spouse Discharge Plan Home Referrals Initiated None needed Whiteboard Updated in Patient Room with No name and ext. # of Truck Driver Comment Unable to enter room due to covid precautions. Review Status In Process Please Provide Date Initial DC 02/02/22 Assessment Was Performed Next Review Type Continued Stay Review
[2022-02-02] MEDS: ENOXAPARIN 40 MG/0.4 ML SYRINGE SUBCUT (11:06)
[2022-02-02] MEDS: POTASSIUM CHLORIDE 20 MEQ TAB 40 MEQ PO (11:06)
== END 2022-02-02 13:28 | disposition home or self-care (01) | DRG 640 ==
LOC: ED 02-01 01:43 → AC 02-01 07:34
PROVIDERS: Admitting Provider Internal Medicine; Emergency Provider Emergency Medicine; PCP Family Medicine; Referring Provider Emergency Medicine; Visit Provider Internal Medicine
DX: E87.1 Hypo-osmolality and hyponatremia (principal); U07.1 COVID-19; R11.2 Nausea with vomiting, unspecified; E87.6 Hypokalemia; E83.42 Hypomagnesemia; I10 Essential (primary) hypertension; E86.0 Dehydration; H40.9 Unspecified glaucoma
CPT/HCPCS: 36415; 71045; 80048; 80053; 83735; 83880; 84300; 84484; 85007; 85025; 87635; 93005; 93010; 96361; 96365; 96366; 96367; 96368; 99284; C9803; J1650; J2765; J3475

== ENCOUNTER 2023-05-23 10:14 | Emergency (ER) | payer MEDICARE, OTHER, SELFPAY ==
[2022-02-01 12:20] VITALS: BMI 18.3
[2023-05-23] VITALS (27 sets, daily range): BP systolic 135–176; BP diastolic 70–94; PULSE 62–75; RESP 13–38; TEMP 36.4; O2SAT 94–100; BMI 20.3
--- NOTE | 2023-05-23 10:16 | DI.RAD.S_ITS ---
PROCEDURE: XR CHEST 1V INDICATIONS: chest pain TECHNIQUE: One view of the chest was acquired. COMPARISON: [facility], CR, XR CHEST 1V, 02/01/2022, 1:46. FINDINGS: Surgical changes and devices: None. Lungs and pleura: Right middle lung zone nodularity. Calcified granuloma in the left lower lobe. No focal airspace opacity. No pneumothorax. Mediastinum: Mediastinal contours appear normal. Heart size is normal. Bones and chest wall: No suspicious bony lesions. Overlying soft tissues appear unremarkable. IMPRESSION: Right middle lung zone nodularity. Recommend nonurgent CT for confirmation. Otherwise, no acute abnormality. Dictated by: Edwin Lawrence M.D. on 05/23/2023 at 10:40 Approved by: Edwin Lawrence M.D. on 05/23/2023 at 10:44
[2023-05-23] MEDS: SODIUM CHLORIDE 0.9% 1,000 ML 150 ML IV (10:50)
--- NOTE | 2023-05-23 11:08 | ED_ITS ---
HPI - General Adult General Chief complaint: Syncope Stated complaint: sent by [facility] for Abnormal EKG Time Seen by Provider: 05/23/23 10:15 Source: patient Mode of arrival: Ambulatory History of Present Illness HPI narrative: 77-year-old female with history of hypertension presents at the request of her primary care provider for a near syncopal episode this morning. She states that she walks 4 miles every day and normally has no trouble but today was 3 miles and when she started feeling increasing short of breath and fatigue as well as lightheadedness and felt like she would pass out were she to continue. She denies any chest pressure, heaviness or squeezing and denies any recent exercise intolerance. She does state that she had a relatively similar episode about a month ago but thought little of it. She stopped her walk and was given a ride home at which time she was able to get an emergency appointment with her primary care provider who obtained an EKG and noted some subtle changes including Q- waves in the inferior leads and she was sent here for evaluation. She does not remember when her last stress test was and denies any prior cardiac history. She denies recent travel, trauma or injury. No history of blood clots or known cancer, no pain, swelling or redness of lower extremities Related Data Home Medications Medication Instructions Recorded Confirmed amlodipine 2.5 mg tablet 2.5 mg PO BEDTIME 02/01/22 02/01/22 indapamide 1.25 mg tablet 1.25 mg PO QAM 02/01/22 02/01/22 lisinopril 20 mg tablet 20 tab PO QAM 02/01/22 02/01/22 multivitamin with minerals-folic 1 tab PO QAM 02/01/22 02/01/22 acid 200 mcg chewable tablet netarsudil 0.02 %-latanoprost 1 drp EYE-BOTH BEDTIME 02/01/22 02/01/22 0.005 % eye drops (Rocklatan) Allergies Allergy/AdvReac Type Severity Reaction Status Date / Time hydromorphone [From Dilaudid] Allergy Verified 05/23/23 10:40 iodine Allergy Verified 05/23/23 10:40 Latex, Natural Rubber Allergy Verified 05/23/23 10:40 Sulfa (Sulfonamide Allergy Verified 05/23/23 10:40 Antibiotics) Review of Systems Review of Systems Narrative: GENERAL: See HPI HEENT: Denies sinus pain, ear pain, sore throat, difficulty swallowing, dizziness. RESPIRATORY: Denies dyspnea, cough, wheezing, hemoptysis, sputum. CARDIOVASCULAR: See HPI GASTROINTESTINAL: Denies nausea, vomiting, abdominal pain, diarrhea, constipation, melena. : Denies dysuria, frequency, incontinence, hematuria, urinary retention. MUSCULOSKELETAL: denies weakness, joint pain, or bony pain SKIN: Denies rash, skin lesions, or other NEUROLOGIC: Denies weakness, headache, numbness, change in speech, confusion, seizures, incoordination. PSYCHIATRIC: No concerning psychosocial issues. 12 point review of systems is negative except for those stated above Patient History Medical History Glaucoma Hypertension Surgical History Previous back surgery H/O: hysterectomy Family History Mother Hypertension Father Hypertension Social History household members: spouse Smoking Status: Never smoker alcohol intake: never Smoking Status: Never smoker Substance Use Type: does not use Exam Narrative Exam Narrative: GENERAL: [77] year old patient appears stated age. Well-developed patient, in mild distress. HEAD: Atraumatic. Normocephalic. EYES: Pupils equal round and reactive. Extraocular motions intact. No scleral icterus. No injection or drainage. ENT: Nose without bleeding, purulent drainage. Throat without erythema, tonsillar hypertrophy or exudate. Airway patent. NECK: Trachea midline. Non tender CARDIOVASCULAR: Regular rate and rhythm without murmurs, gallops, or rubs. RESPIRATORY: Clear to auscultation. Breath sounds equal bilaterally. No wheezes, rales, or rhonchi. GASTROINTESTINAL: Abdomen soft, non-tender, nondistended. EXTREMITIES: No edema or joint tenderness. BACK: Nontender without deformity or crepitance. No flank tenderness. NEURO: AOx3. SKIN: No rash or erythema of visible areas Initial Vital Signs Initial Vital Signs: Vital Signs Temperature 97.6 F 05/23/23 10:34 Pulse Rate 68 05/23/23 10:34 Respiratory Rate 18 05/23/23 10:34 Blood Pressure 153/82 H 05/23/23 10:34 Pulse Oximetry 99 05/23/23 10:34 Oxygen Delivery Method Room Air 05/23/23 10:34 Scores HEART Score Heart Score history: Moderately Suspicious Heart Score EKG: Non-Specific repolarization disturbance Heart Score Age: > or = 65 years old Heart Score risk factors: 1-2 risk factors Heart Score troponin: < or = to normal limit Heart Score Total: 5 Course Orders Ordered: ED Orders 05/23/23 10:16 XR chest 1V Stat 05/23/23 10:53 EKG-12 Lead Stat 05/23/23 11:00 Complete Blood Count AUTO DIFF Stat Comprehensive Metabolic Panel Stat D Dimer Stat Lipase Stat NT-proBNP (BNP-Adult 18+) Stat Troponin & CK Cardiac Panel Stat 05/23/23 11:14 CRP [C-Reactive Protein Quant] Stat ESR [Erythrocyte Sedimentation Rate] Stat 05/23/23 12:43 EKG-12 Lead Stat 05/23/23 14:05 BMP [Basic Metabolic Panel] Stat Troponin & CK Cardiac Panel Stat Sodium Chloride (Normal Saline 0.9%) 1,000 mls @ 150 mls/hr IV CONT ARI Last Infusion: 05/23/23 13:40 Dose: Infused Documented By: Infusion: 05/23/23 12:24 Dose: 900 mls/hr Documented By: Admin: 05/23/23 10:50 Dose: 150 mls/hr Documented By: AMV Reevaluation(s) Reevaluation #1: Patient resting comfortably, complains only of feeling fatigued Consultations Consultation #1: Discussed with on-call Cardiology, Dr. Manzo. We have reviewed the patient's history and physical exam, EKGs and labs. EKGs are unchanged from prior. Troponin negative x2. Patient is quite active and walks 4 miles per day and tolerated it even as recently as yesterday. All of the pain discussed the patient could appropriately be discharged with outpatient follow-up or admitted after discussion and shared decision-making. Vital Signs Vital signs: Vital Signs - 8 hr 05/23/23 10:34 05/23/23 10:45 05/23/23 10:47 Temperature 97.6 F Pulse Rate 68 64 Respiratory Rate 18 25 H Blood Pressure 153/82 H 176/79 H Pulse Oximetry 99 Oxygen Delivery Method Room Air 05/23/23 10:47 10/27/23 11:00 05/23/23 11:02 Temperature Pulse Rate 64 65 64 Respiratory Rate 20 Blood Pressure Pulse Oximetry 100 99 99 Oxygen Delivery Method 05/23/23 11:02 05/23/23 11:30 05/23/23 11:30 Temperature Pulse Rate 62 Respiratory Rate 18 Blood Pressure 157/71 H 145/78 H Pulse Oximetry 99 Oxygen Delivery Method 05/23/23 11:45 05/23/23 11:45 05/23/23 12:00 Temperature Pulse Rate 64 Respiratory Rate 22 Blood Pressure 147/73 H 168/91 H Pulse Oximetry 99 Oxygen Delivery Method Room Air 05/23/23 12:00 05/23/23 12:16 05/23/23 12:16 Temperature Pulse Rate 68 68 Respiratory Rate Blood Pressure 173/81 H Pulse Oximetry 99 98 Oxygen Delivery Method Room Air 05/23/23 12:30 05/23/23 12:30 05/23/23 12:45 Temperature Pulse Rate 67 66 Respiratory Rate 20 Blood Pressure 144/70 H Pulse Oximetry 97 99 Oxygen Delivery Method Room Air Room Air 05/23/23 12:45 05/23/23 13:00 05/23/23 13:00 Temperature Pulse Rate 63 Respiratory Rate 24 Blood Pressure 141/78 H 142/74 H Pulse Oximetry 99 Oxygen Delivery Method 05/23/23 13:23 05/23/23 13:23 05/23/23 13:30 Temperature Pulse Rate 64 63 Respiratory Rate 13 16 Blood Pressure 163/80 H Pulse Oximetry 94 Oxygen Delivery Method Room Air 05/23/23 13:30 05/23/23 13:45 05/23/23 13:45 Temperature Pulse Rate 62 Respiratory Rate 22 Blood Pressure 148/72 H 146/73 H Pulse Oximetry 100 Oxygen Delivery Method Room Air 05/23/23 14:00 05/23/23 14:00 05/23/23 14:15 Temperature Pulse Rate 66 Respiratory Rate 16 Blood Pressure 157/77 H 161/82 H Pulse Oximetry 99 Oxygen Delivery Method Room Air 05/23/23 14:15 05/23/23 14:30 05/23/23 14:30 Temperature Pulse Rate 73 68 Respiratory Rate Blood Pressure 150/81 H Pulse Oximetry 99 96 Oxygen Delivery Method Room Air 05/23/23 14:45 05/23/23 14:45 05/23/23 15:00 Temperature Pulse Rate 68 71 Respiratory Rate 20 38 H Blood Pressure 139/86 Pulse Oximetry 98 98 Oxygen Delivery Method Room Air 05/23/23 15:01 05/23/23 15:01 05/23/23 15:15 Temperature Pulse Rate 74 67 Respiratory Rate 34 H Blood Pressure 169/94 H Pulse Oximetry 98 98 Oxygen Delivery Method Room Air 05/23/23 15:15 05/23/23 15:30 05/23/23 15:48 Temperature Pulse Rate 70 72 Respiratory Rate Blood Pressure 150/82 H Pulse Oximetry 96 96 Oxygen Delivery Method Room Air 05/23/23 15:48 05/23/23 16:00 05/23/23 16:00 Temperature Pulse Rate 71 Respiratory Rate 29 H Blood Pressure 135/76 145/86 H Pulse Oximetry 97 Oxygen Delivery Method 05/23/23 16:15 05/23/23 16:15 05/23/23 16:30 Temperature Pulse Rate 75 Respiratory Rate 24 Blood Pressure 154/87 H 166/89 H Pulse Oximetry 95 Oxygen Delivery Method 05/23/23 16:30 Temperature Pulse Rate 75 Respiratory Rate 30 H Blood Pressure Pulse Oximetry 96 Oxygen Delivery Method Medical Decision Making Lab Data 05/23/23 11:00 05/23/23 14:05 Labs: Lab Results 05/23/23 05/23/23 05/23/23 Range/Units 11:00 11:14 14:05 WBC 5.9 (4.5-11.0) X10^3/uL RBC 3.83 L (4.0-5.2) X10^6/uL Hgb 12.5 (12.0-16.0) g/dL Hct 35.7 L (36-46) % MCV 93.1 (80-100) fL MCH 32.5 (26-34) PG MCHC 35.0 (30-36) % RDW 13.9 (11.6-14.8) % Plt Count 324 (150-400) X10^3/uL Neut % (Auto) 79.8 H (50-75) % Lymph % (Auto) 11.7 L (25-40) % Taliaferro % (Auto) 7.9 (3-14) % Eos % (Auto) 0.1 L (2-4) % Baso % (Auto) 0.5 (0-2) % Neut # (Auto) 4700 (4383-5913) /uL Lymph # (Auto) 700 L (6168-4707) /uL Taliaferro # (Auto) 500 (0-900) /uL Eos # (Auto) 0 (0-450) /uL Baso # (Auto) 0 (0-100) /uL ESR 12 (0-20) MM/HR D-Dimer 248 (<500) ng/ml Sodium 128 L 130 L (137-145) mmol/L Potassium 3.8 3.6 (3.4-5.1) mmol/L Chloride 90 L 95 L (98-107) mmol/L Carbon Dioxide 33 H 29 (22-32) mmol/L BUN 18 H 17 (7-17) mg/dL Creatinine 1.24 H 0.70 (0.52-1.04) mg/dL Estimated GFR 44 L > 60 (>60) mL/min BUN/Creatinine Ratio 14.5 24.3 H (6-22) Glucose 106 85 (80-110) mg/dL Calcium 9.6 9.0 (8.4-10.2) mg/dL Total Bilirubin 0.1 L (0.2-1.3) mg/dL AST 31 (14-36) IU/L ALT 22 (<35) IU/L Alkaline Phosphatase 43 (38-126) U/L Total Creatine Kinase 100 91 (30-135) U/L Troponin I < 0.012 < 0.012 (0.01-0.034) ng/mL C-Reactive Protein < 0.5 (<1.0) mg/dL NT-Pro-B Natriuret Pep 218 (<450) pg/mL Total Protein 7.2 (6.3-8.2) g/dL Albumin 4.3 (3.5-5.0) g/dL Globulin 2.9 (1.7-4.1) g/dL Albumin/Globulin Ratio 1.5 (1.0-2.8) Lipase 172 (23-300) U/L ECG Data Interpretation: 1053] EKG is normal sinus rhythm rate [ 65] and free of any acute signs of ischemia or ectopy, Q-waves noted in inferior leads unchanged from prior EKG in 2021. No ST segmental elevation or depression. No T wave inversions MDM Narrative Medical decision making narrative: [77] year old patient presents with near syncopal episode Multiple etiologies for patient's symptoms considered including, but not limited to: [Cardiac ischemia versus pulmonary embolism versus electrolyte abnormality versus other] Prior Charts reviewed in our EMR Primary Historian: patient Labs reviewed and interpreted by myself: No leukocytosis or left shift, no evidence of anemia, troponin negative x2, D-dimer below cutoff Imaging reviewed: Chest x-ray without acute findings Consultations: Discussed with Cardiology, see details above Patient is essentially asymptomatic for duration of visit. Multiple diagnoses considered as noted above. Cardiac ischemia thought extremely unlikely given lack of exertional symptoms, exercise intolerance, no EKG change, troponin x2 negative. Pulmonary embolism considered but thought unlikely with negative D- dimer. Discussed pros and cons of admission for workup versus outpatient and after this discussion patient would prefer to pursue workup as an outpatient. She understands that for any change in her symptoms she may return and we will re-evaluate. Findings and discharge diagnosis discussed with patient/family followed by verbalization of understanding Return precautions discussed with patient/family whom verbalize understanding of diagnosis and plan Discharge Plan Departure Patient Disposition: Home Clinical Impression: Near syncope Instructions: DI for Syncope in Adults (Fainting) Activity Restrictions/Additional Instructions: *You have been diagnosed with [near-syncope. As we discussed your history and physical exam as well as labs, EKGs and imaging are reassuring. Furthermore I discussed your case with Dr. Quintana, the campaign manager on-call, and we share the opinion that outpatient workup is appropriate. This would likely include a stress test and an echocardiogram which your PCP or [facility] can help arrange] *What to do: *Please continue to take your regular medications as directed. [ ] New medication prescriptions sent to your pharmacy: [ ] [ ] New medication written as a paper prescription [ ] No new medications given *Please follow up with your primary care provider in 2-3 days, call for an appointment. Let them know you were seen in the Emergency Department and that we ask that you be seen in follow up. We will electronically transmit a record of today's note if your PCP is in our system * as we discussed, it would be reasonable to contact [facility] cardiology directly, let them know that you were seen in the emergency department and we would like you to be seen in follow-up. I will electronically transmitted a copy of your record from today. Dr. Quintana was involved with consultation on your case and recommended an outpatient stress test and echocardiogram *Return to Emergency Department if you should have any new, worsening or concerning symptoms, such as [fever greater than 101 F, shaking chills, worsening pain, persistent vomiting or other bothersome symptoms] Prescriptions: No Action lisinopril 20 mg tablet 20 tab PO QAM amlodipine 2.5 mg tablet 2.5 mg PO BEDTIME indapamide 1.25 mg tablet 1.25 mg PO QAM Rocklatan 0.02-0.005 % drops 1 drp EYE-BOTH BEDTIME multivit with min-folic acid 200 mcg Tablet,Chewable 1 tab PO QAM Referrals: Jax Cardoso DO [Primary Care Provider] - Wilda Quintana MD [Physician] - Stand Alone Forms: Patient Portal/API
[2023-05-23 11:18] LABS: Add Manual Diff / Slide Review NO; Basophils Absolute Auto 0 /uL (0-100); Basophils Percent Auto 0.5 % (0-2); Eosinophils Absolute Auto 0 /uL (0-450); Eosinophils Percent Auto 0.1 % (2-4); Hematocrit 35.7 % (36-46); Hemoglobin 12.5 g/dL (12.0-16.0); Lymphocytes Absolute Auto 700 /uL (1100-4500); Lymphocytes Percent Auto 11.7 % (25-40); Mean Corpuscular Hemoglobin 32.5 PG (26-34); Mean Corpuscular Volume 93.1 fL (80-100); Monocytes Absolute Auto 500 /uL (0-900); Monocytes Percent Auto 7.9 % (3-14); Neutrophils Absolute Auto 4700 /uL (1500-7000); Neutrophils Percent Auto 79.8 % (50-75); Platelet Count 324 X10^3/uL (150-400); Red Blood Cell Count 3.83 X10^6/uL (4.0-5.2); Red Cell Distribution Width 13.9 % (11.6-14.8); White Blood Cell Count 5.9 X10^3/uL (4.5-11.0)
[2023-05-23 11:24] LABS: D Dimer 248 ng/ml (<500)
[2023-05-23 11:28] LABS: Alanine Aminotransferase 22 IU/L (<35); Albumin 4.3 g/dL (3.5-5.0); Albumin Globulin Ratio 1.5 (1.0-2.8); Alkaline Phosphatase 43 U/L (38-126); Aspartate Aminotransferase 31 IU/L (14-36); Bilirubin Total 0.1 mg/dL (0.2-1.3); Blood Urea Nitrogen 18 mg/dL (7-17); Calcium 9.6 mg/dL (8.4-10.2); Carbon Dioxide 33 mmol/L (22-32); Chloride 90 mmol/L (98-107); Creatine Kinase 100 U/L (30-135); Globulin 2.9 g/dL (1.7-4.1); Glucose 106 mg/dL (80-110); HEMOLYSIS < 15 (0-50); Lipase 172 U/L (23-300); Potassium 3.8 mmol/L (3.4-5.1); Sodium 128 mmol/L (137-145); Total Protein 7.2 g/dL (6.3-8.2)
--- NOTE | 2023-05-23 11:30 | PC.NURSE ---
Pt usually takes her dog on a 4mile walk 6x a week. Approximately 3miles into her walk she became SOB and lightheaded feeling like she was going to pass out. She was able to make it into a old peoples home where she called her . He did not answer so someone was able to give her a ride home where her initially brought her to the walk in clinic before being referred to the ER.
[2023-05-23 11:32] LABS: C-Reactive Protein Quant < 0.5 mg/dL (<1.0)
[2023-05-23 11:35] LABS: BUN Creatinine Ratio 14.5 (6-22); Estimated Glomerular Filt Rate 44 mL/min (>60)
[2023-05-23 11:40] LABS: NT-proBNP (BNP-Adult 18+) 218 pg/mL (<450); Troponin I < 0.012 ng/mL (0.01-0.034)
[2023-05-23 11:41] LABS: Erythrocyte Sedimentation Rate 12 MM/HR (0-20)
[2023-05-23 14:21] LABS: BUN Creatinine Ratio 24.3 (6-22); Blood Urea Nitrogen 17 mg/dL (7-17); Carbon Dioxide 29 mmol/L (22-32); Chloride 95 mmol/L (98-107); Creatine Kinase 91 U/L (30-135); Estimated Glomerular Filt Rate > 60 mL/min (>60); Glucose 85 mg/dL (80-110); HEMOLYSIS 15 (0-50); Potassium 3.6 mmol/L (3.4-5.1); Sodium 130 mmol/L (137-145)
--- NOTE | 2023-05-23 14:21 | PC.NURSE ---
Provided education to pt and her spouse regarding her lab values which the doctor had previously explained. Patient thankful for revisiting what the doctor had talked about with them.
[2023-05-23 14:33] LABS: Troponin I < 0.012 ng/mL (0.01-0.034)
--- NOTE | 2023-05-23 15:15 | PC.NURSE ---
Pt states her dizziness isnt as intense as it has been, but still has the feeling of not enough air in my lungs.
== END 2023-05-23 16:55 | disposition home or self-care (01) ==
PROVIDERS: Emergency Provider Emergency Medicine; PCP Family Medicine
DX: R55 Syncope and collapse (principal)
CPT/HCPCS: 36415; 71045; 80048; 80053; 82550; 83690; 83880; 84484; 85025; 85379; 85651; 86140; 93005; 93010; 96360; 96361; 99284

== ENCOUNTER → 2023-06-26 09:38 | Outpatient (CLI) | payer MEDICARE, OTHER, SELFPAY ==
[2022-02-01 12:20] VITALS: BMI 18.3
--- NOTE | 2023-06-26 09:42 | DI.ECHO.S_ITS ---
[facility] +---------+ : : 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 The ejection fraction is estimated to be 55-60%. There are no focal wall motion abnormalities. Diastolic parameters suggest a relaxation abnormality of the left ventricle, consistent with probable normal filling pressures. The right ventricle is normal in size and function. There is no significant valvular heart disease. The aortic root is normal size. Procedure: A two-dimensional transthoracic echocardiogram with color flow and Doppler was performed. The study quality was technically adequate. There is no prior echocardiogram noted for this patient. The patient was in sinus rhythm with heart rates between 66-72 bpm during the exam. Left Ventricle: The left ventricle is normal in size. Proximal septal thickening is noted. The ejection fraction is estimated to be 55-60%. There are no focal wall motion abnormalities. Diastolic parameters suggest a relaxation abnormality of the left ventricle, consistent with probable normal filling pressures. Right Ventricle: The right ventricle is normal in size and function. Atria: The left atrial size is normal. Right atrial size is normal. There is no Doppler evidence for an interatrial shunt. Mitral Valve: The mitral valve is normal in structure and function. There is mild mitral regurgitation. Aortic Valve: The aortic valve is trileaflet. The aortic valve opens well. There is no aortic valve stenosis. No aortic regurgitation is present. Tricuspid Valve: The tricuspid valve is normal in structure and function. There is trace tricuspid regurgitation. Pulmonic Valve: The pulmonic valve is not well seen, but is grossly normal. There is no pulmonic valvular regurgitation. There is no significant valvular heart disease. Great Vessels: The aortic root is normal size. The dimensions of the ascending aorta are normal. The IVC is of normal diameter and collapses greater than 50% with a sniff. This suggests a low right atrial pressure of 3 mm Hg. Pericardium/ Pleura There is no pericardial effusion. There is no pleural effusion. MMode/2D Measurements & Calculations LVIDd: 4.2 cm LVOT diam: 2.0 cm LVIDs: 2.8 cm Ao root diam: 3.0 cm FS: 33.9 % asc Aorta Diam: 3.0 cm IVSd: 0.66 cm Ao Arch Diam (Prox Trans): 2.3 cm LVPWd: 0.68 cm LV mccracken. diameter/BSA (cm/m^2): 2.8 LV sys. diameter/BSA (cm/m^2): 1.8 LA A2 area: 19.8 cm2 RA long axis: 4.6 cm LA A4 area: 10.5 cm2 RA area: 10.2 cm2 LA length (vol): 4.0 cm RA vol: 19.3 ml LA vol: 43.9 ml RA : 12.8 ml/m2 LA vol index: 29.0 ml/m2 IVC diam: 1.3 cm RVD1 (basal): 3.6 cm RVD2 (mid): 2.3 cm TAPSE: 2.3 cm Doppler Measurements & Calculations Ao V2 max: 102.3 cm/sec LVOT Max Terrell: 96.8 cm/sec Ao V2 mean: 75.5 cm/sec LV V1 max P.7 mmHg Ao max P.2 mmHg LV V1 VTI: 23.7 cm Ao mean P.5 mmHg DAMIAN(I,D): 2.9 cm2 Ao V2 VTI: 26.2 cm DAMIAN(V,D): 3.0 cm2 sev ratio: 0.90 DAMIAN indexed to BSA (cm^2/m^2): 1.9 MV E max terrell: 68.0 cm/sec PA V2 max: 60.2 cm/sec MV A max terrell: 90.2 cm/sec PA V2 mean: 45.9 cm/sec MV E/A: 0.75 PA mean P.89 mmHg Med Peak E' Terrell: 5.8 cm/sec PA pr(Accel): 37.9 mmHg E/E' med: 11.7 Lat Peak E' Terrell: 7.0 cm/sec E/E' lat: 9.8 E/e' average: 10.7 MV dec time: 0.23 sec [facility] 74.7 ml Reading Physician:06:03 PM
--- NOTE | 2023-06-26 20:07 | DI.NM.S_ITS ---
DATE OF SERVICE: 06/26/2023 PROCEDURE: Exercise perfusion study. INDICATIONS: Shortness of breath with hypertension and hyperlipidemia. RADIOPHARMACEUTICAL: 25.2 millicurie technetium-99m Myoview IV was injected at stress and 10.0 millicurie technetium-99m Myoview IV was injected at rest. CARDIAC STRESS: Patient underwent exercise perfusion study under the supervision of an attending staff using standard Eliel protocol. The patient walked on Eliel protocol for 5 minutes and 31 seconds, achieved maximum heart rate of 150, which was 106% of target heart rate. Resting blood pressure 140/80 and peak blood pressure 206/106, suggestive of hypertensive blood pressure response. Achieved 7 METs of workload. CALEB -12%. No chest pain. The patient felt fatigue and dyspnea. Baseline rhythm was sinus with Q-waves in inferior leads and repolarization changes. During stress, no convincing ischemic changes seen. Occasional PVCs. No ventricular tachycardia. RAW DATA: Adequate myocardial uptake. GATED STUDY: Resting LV ejection fraction 87 and stress LV ejection fraction 88% without any significant wall motion abnormalities. Resting end-diastolic volume 62 mL. TID ratio 0.89, which is within normal limits. Lung/heart ratio was not measured. MYOCARDIAL PERFUSION SCAN: Stress supine, resting supine and stress prone images were compared to each other. Stress supine images revealed small size, mildly decreased perfusion of distal anterior wall and distal anterior septum, which got improved during stress prone images, suggestive of tissue attenuation artifact, like breast tissue attenuation artifact. No convincing ischemia or infarction pattern seen. CONCLUSION: I will call this study likely a normal myocardial perfusion study with evidence of breast tissue attenuation artifact, which got improved during stress prone images. Fair exercise tolerance. Mildly hypertensive blood pressure response. No significant arrhythmias. No chest pain. The patient felt dyspnea and fatigue. Preserved left ventricular function. As far as perfusion scan is concerned, this is a low-risk myocardial perfusion scan. Brynn Celsa - IMELDA/nae/ doc#: [id number]/job#: [id number] dd: 06/26/2023 16:34:00 dt: 06/26/2023 19:55:00 DICTATING MD/COPIES TO: Carter Naik MD COPIES MNE: MATTHIAS;
== END ==
PROVIDERS: PCP Family Medicine; Referring Provider Family Medicine; Visit Provider Family Medicine
DX: I34.0 Nonrheumatic mitral (valve) insufficiency (principal); R06.09 Other forms of dyspnea
CPT/HCPCS: 78452; 93017; 93306; A9502

== ENCOUNTER → 2025-01-17 09:47 | Outpatient (CLI) | payer MEDICARE, OTHER, SELFPAY ==
[2022-02-01 12:20] VITALS: BMI 18.3
--- NOTE | 2025-01-17 09:50 | DI.CT.S_ITS ---
PROCEDURE: CT LUMBAR SPINE WO CON INDICATIONS: SPINAL STENOSIS TECHNIQUE: Noncontrast 3 mm thick sections acquired from the T12 level to the sacrum. Sagittal and coronal reformats were constructed. For radiation dose reduction, the following was used: automated exposure control. COMPARISON: None. FINDINGS: Image quality: Excellent. Bones: Vertebral body height is maintained. Normal bone mineralization. Grade 1 anterior spondylolisthesis L4-5. T12-L1: No central or foraminal stenosis. L1-L2: Disc bulge and arthropathy. Gqbc-al-cutrvcon central stenosis. Moderate left and mild right foraminal stenosis L2-L3: Disc bulge and arthropathy. Make ligamentum flavum laxity. Moderate central stenosis. Moderate bilateral foraminal stenosis L3-L4: Disc bulge and arthropathy. Severe central stenosis. Severe right and moderate left foraminal stenosis. L4-L5: Disc bulge and arthropathy. Severe central stenosis. Severe right and moderate left foraminal stenosis L5-S1: Disc bulge and arthropathy. Severe central stenosis. Severe left and moderate right foraminal stenosis. Soft tissues: No retroperitoneal masses or hematomas. Visualized aorta is normal in caliber. IMPRESSION: Multilevel degenerative disc disease and arthropathy results in varying degrees of central and foraminal stenosis including severe central stenosis L3-4, L4-5 and L5-S1 Approved by: Brody Ferrer M.D. on 01/17/2025 at 15:07
== END ==
PROVIDERS: PCP Family Medicine; Referring Provider Family Medicine; Visit Provider Physical Medicine & Rehabilitation
DX: M48.062 Spinal stenosis, lumbar region with neurogenic claudication (principal); M48.07 Spinal stenosis, lumbosacral region; M43.16 Spondylolisthesis, lumbar region; M41.26 Other idiopathic scoliosis, lumbar region; M51.369 Other intervertebral disc degeneration, lumbar region without mention of lumbar back pain or lower extremity pain; M51.379 Other intervertebral disc degeneration, lumbosacral region without mention of lumbar back pain or lower extremity pain; M47.816 Spondylosis without myelopathy or radiculopathy, lumbar region; M47.817 Spondylosis without myelopathy or radiculopathy, lumbosacral region
CPT/HCPCS: 72131

== ENCOUNTER 2025-04-21 09:40 | Outpatient (CLI) | payer MEDICARE, OTHER, SELFPAY ==
[2022-02-01 12:20] VITALS: BMI 18.3
[2025-04-21] VITALS (8 sets, daily range): BP systolic 122–181; BP diastolic 64–84; PULSE 68–76; RESP 10–18; TEMP 36.8; O2SAT 95–100
[2025-04-21] MEDS: MIDAZOLAM 2 MG/2 ML VIAL IV (11:03)
[2025-04-21] MEDS: BETAMETHASONE 30 MG/5 ML MDV 12 MG INJ (11:11)
--- NOTE | 2025-04-21 11:20 | P.PCN_ITS ---
Date/Time/Diagnoses Date of procedure: 04/21/25 Time of procedure: 11:20 Pre-procedure diagnosis: 1. HNP WITH RADICULAR FEATURES, 2. MULTILEVEL CENTRAL STENOSIS, Post-procedure diagnosis: same Procedure Notes Procedure: 1. FLUOROSCOPICALLY GUIDED CONTRAST CONTROLLED INTERLAMINAR EPIDURAL STEROID INJECTION -L4/5 Indications: Celsa is referred by Dr. Cardoso for treatment of Bilateral Foraminal Stenosis R>L LE symptoms. Physician: Darian Krueger Total Fluoroscopy time (seconds): 5 Total sedation minutes: 10 Complications: none Procedure in detail & Post-procedure care: FINDINGS Multilevel Central Spinal Stenosis with Nerve Root Compression DESCRIPTION OF PROCEDURE Fluoroscopically guided, contrast-controlled L4/5 translaminar epidural steroid injection. Following review of allergy and review of potential side effects and complications, including, but not necessarily limited to, infection, allergic reaction, local tissue breakdown, temporary as well as permanent nerve injury, paralysis, stroke and possible , the patient indicated that the patient understood and agreed to proceed. An informed consent document was signed by the patient, witnessed by a nurse, and placed in the patient's chart. Additionally, other treatment options including modalities, medications, and physical therapy were reviewed with the patient. After review of previous anaesthesic history and IV conscious sedation the patient was deemed safe to proceed with today?s procedure with IV conscious sedation as ASA class II designation. Safety time-out was performed to confirm patient ID, procedure to be performed and site of procedure. IV sedation was accomplished with a combination of 2mg of Versed was administered by the RN after DO order, titrated to patient comfort during the course of the procedure while the patient remained responsive to all verbal commands In the prone position, following sterile prep and drape of the lumbar region, the L4/5 translaminar space was identified fluoroscopically. The skin was anesthetized via a 25-gauge, 1.5inch needle with 1% lidocaine solution. At this point, a 22-gauge short bevel spinal needle was atraumatically introduced and a dvanced under fluoroscopic guidance into the region of the L4/5 translaminar space. Depth was confirmed on lateral view. Radiological data, including multiple fluoroscopic views of the lumbar spine, reveal a spinal needle at the L4/5 translaminar space. Lateral views then show placement of the needle in the epidural space. Subsequent views show contrast material flowing superiorly and inferiorly in the epidural space. No vascular or intrathecal uptake is observed. At this point, using loss of resistance technique with saline and air, the epidural space was entered. This was confirmed following negative aspiration with injection of approximately 1.5cc of Isovue 200, showing excellent epidural flow without vascular or intrathecal uptake. At this point, 1cc of 0.25% marcaine solution combined with 3cc or 10mg of dexamethasone and 12mg betamethasone was injected without incident. The patient tolerated the procedure well without signs or symptoms of complications prior to transfer to the recovery area continued monitoring without incident. The patient was then transferred to the recovery area where they were observed for an appropriate period of time after the injection. The patient reported a VAS score of 6 prior to the procedure and a post- procedure VAS of 0. POST OP INSTRUCTIONS The patient was provided a Pain Log to continue to record their response to the target-specific procedure prior to follow-up visit with their referring physician. Additionally, specific post-injection care instructions and a contact number to our office were provided if concerns arise regarding possible complications associated with the procedure are suspected.
== END 2025-04-21 12:18 | disposition home or self-care (01) ==
PROVIDERS: PCP Family Medicine; Referring Provider Physical Medicine & Rehabilitation; Visit Provider Physical Medicine & Rehabilitation
DX: M51.16 Intervertebral disc disorders with radiculopathy, lumbar region (principal); M48.061 Spinal stenosis, lumbar region without neurogenic claudication
CPT/HCPCS: 62323; 99152; J0702; J1100; J2250